=== PATIENT | male | born 1995 | race Caucasian/White ===

== ENCOUNTER 2018-05-15 14:57 | Day surgery (SDC) | payer OTHER ==
[~2018-05-15 14:57] MED LIST: CEFAZOLIN 1 GM INJ; DESFLURANE 15 MIN
[2018-05-15] MEDS ORDERED: MEPERIDINE 25 MG INJ IV (17:30)
[2018-05-15] MEDS ORDERED: HYDROmorphONE 1 MG/5 ML IV SYRINGE IV ×3 (17:30)
[2018-05-15] MEDS ORDERED: DIPHENHYDRAMINE 50 MG INJ IV (17:30)
[2018-05-15] MEDS ORDERED: ALBUTEROL 0.083% (NEB) 2.5 MG/3 ML AMP HHN (17:30)
[2018-05-15] MEDS ORDERED: ONDANSETRON 4 MG INJ IV (17:30)
[2018-05-15] MEDS ORDERED: FENTAnyl 50 MCG/ML VIAL IV ×3 (17:30)
[2018-05-15] MEDS ORDERED: METOCLOPRAMIDE 10 MG INJ IV (17:30)
[2018-05-15] MEDS ORDERED: ROPIVACAINE 0.5 % 30 ML VIAL (17:45)
[2018-05-15] MEDS ORDERED: MIDAZOLAM 1 MG/ML 2 ML INJ (17:45)
[2018-05-15] MEDS ORDERED: NEOSTIGMINE 10 MG INJ (18:21)
[2018-05-15] MEDS ORDERED: PROPOFOL 20 ML (18:21)
[2018-05-15] MEDS ORDERED: SUCCINYLCHOLINE CHLORIDE 100 MG/5 ML SYG IV (18:21)
[2018-05-15] MEDS ORDERED: GLYCOPYRROLATE 0.4 MG INJ (18:21)
[2018-05-15] MEDS ORDERED: ROCURONIUM 50 MG INJ (18:21)
[2018-05-15] MEDS ORDERED: LIDOCAINE 100 MG SYRINGE (18:21)
== END 2018-05-15 20:58 | disposition home or self-care (01) ==
LOC: SDS 14:57
DX: S63.264A Dislocation of metacarpophalangeal joint of right ring finger, initial encounter (principal); S63.266A Dislocation of metacarpophalangeal joint of right little finger, initial encounter; X58.XXXA Exposure to other specified factors, initial encounter; E66.9 Obesity, unspecified; Y93.89 Activity, other specified; Y92.89 Other specified places as the place of occurrence of the external cause; Y99.8 Other external cause status
CPT/HCPCS: 26676; 73130-RT

== ENCOUNTER 2018-07-09 15:26 | Day surgery (SDC) | payer OTHER ==
[~2018-07-09 15:26] MED LIST changes: -CEFAZOLIN 1 GM INJ; +CEFAZOLIN 2 GM/50 ML (PMX) 50 ML IVPB; -DESFLURANE 15 MIN; +LACTATED RINGER'S 1,000 ML IV
[2018-07-09] MEDS ORDERED: METOCLOPRAMIDE 10 MG INJ IV (17:00)
[2018-07-09] MEDS ORDERED: FENTAnyl 50 MCG/ML VIAL IV ×3 (17:00)
[2018-07-09] MEDS ORDERED: OXYCODONE/ACETAMINOPHEN (5/325) TAB PO ×2 (17:00)
[2018-07-09] MEDS ORDERED: ONDANSETRON 4 MG INJ IV (17:00)
[2018-07-09] MEDS ORDERED: MEPERIDINE 25 MG INJ IV (17:00)
[2018-07-09] MEDS ORDERED: MIDAZOLAM 1 MG/ML 2 ML INJ IV (17:00)
[2018-07-09] MEDS ORDERED: DIPHENHYDRAMINE 50 MG INJ IV (17:00)
[2018-07-09] MEDS ORDERED: PROPOFOL 20 ML (17:01)
[2018-07-09] MEDS ORDERED: FENTAnyl 50 MCG/ML VIAL (17:02)
[2018-07-09] MEDS ORDERED: MIDAZOLAM 1 MG/ML 2 ML INJ (17:02)
[2018-07-09] MEDS ORDERED: CEFAZOLIN 1 GM INJ (17:02)
[2018-07-09] MEDS ORDERED: ONDANSETRON 4 MG INJ (17:02)
[2018-07-09] MEDS: BUPIVACAINE 0.5% (SDV) 30 ML INJ (17:27)
[2018-07-09] MEDS: POLYMYXIN/BACITRACIN 1L IRRIG (17:29)
== END 2018-07-09 19:15 | disposition home or self-care (01) ==
LOC: SDS 15:26
DX: S62.306D Unspecified fracture of fifth metacarpal bone, right hand, subsequent encounter for fracture with routine healing (principal); X58.XXXD Exposure to other specified factors, subsequent encounter
CPT/HCPCS: 20680; 73130-RT; 88300